=== PATIENT | male | born 1955 ===

== ENCOUNTER 2016-12-01 12:48 | Emergency (ER) | payer SELFPAY ==
[2016-12-01 12:48] VITALS: BMI 27.3
[2016-12-01 13:12] VITALS: BP 162/85; PULSE 75; RESP 16; TEMP 98.4; O2SAT 99
--- NOTE | 2016-12-01 14:12 | ED PDOC ---
HPI: Head Injury Time Seen by Provider: 12/01/16 13:34 Chief Complaint (Nursing): Headache Chief Complaint (Provider): Head Injury History Per: [employer] (Torie Wood [id number]) History/Exam Limitations: no limitations Onset/Duration Of Symptoms: Days (x5) Patient States: Fell Striking Head Severity: Mild Loss Of Consciousness: No Additional Complaint(s): Patient is a 61 year old male presenting to the ED complaining of head injury status post fall x5 days ago. [employer] Torie [id number] translated for the patient. Patient reports falling onto the back of his head and reports pain to that area. Patient reports discharge from his nose described as blood tinged mucous. Patient also complains of dizziness. Denies loss of consciousness. PMD: none Past Medical History Reviewed: Historical Data, Nursing Documentation, Vital Signs Vital Signs: Last Vital Signs Temp 98.4 F 12/01/16 13:07 Pulse 75 12/01/16 13:07 Resp 16 12/01/16 13:07 BP 162/85 H 12/01/16 13:07 Pulse Ox 99 12/01/16 13:07 - Medical History PMH: Deep Vein Thrombosis (2006), Malignancy (prostate CA), Pulmonary Embolism - Surgical History Surgical History: Appendectomy (1998) - Family History Family History: States: No Known Family Hx - Home Medications Home Medications: Ambulatory Orders Medication Instructions Recorded Lisinopril [Zestril] 2.5 mg PO DAILY 10/27/15 Pravastatin Sodium [Pravachol] 40 mg PO DAILY 10/27/15 Sildenafil [Revatio] 20 mg PO PRN PRN 10/27/15 Tamsulosin [Flomax] 0.4 mg PO DAILY 10/27/15 Warfarin [Coumadin] 7 mg PO HS 10/27/15 Azithromycin [Z-Stas] 250 mg PO DAILY #6 tab 10/05/16 Promethazine DM [Phenergan DM 10 ml PO Q8H PRN #120 ml 10/05/16 Syrup] Meclizine [Meclizine*] 25 mg PO Q6 PRN #30 tab 12/01/16 - Allergies Allergies/Adverse Reactions: Allergies Allergy/AdvReac Type Severity Reaction Status Date / Time No Known Allergies Allergy Verified 04/22/16 17:34 Review of Systems ROS Statement: Except As Marked, All Systems Reviewed And Found Negative Constitutional: Positive for: Other (pain to the back of head) ENT: Positive for: Other (blood tinged nose discharge) Gastrointestinal: Negative for: Nausea Neurological: Positive for: Dizziness Physical Exam - Reviewed Nursing Documentation Reviewed: Yes Vital Signs Reviewed: Yes - Physical Exam Appears: Positive for: Well, Non-toxic, No Acute Distress Head Exam: Positive for: ATRAUMATIC, NORMAL INSPECTION, NORMOCEPHALIC Skin: Positive for: Normal Color, Warm, DRY Eye Exam: Positive for: EOMI, Normal appearance, PERRL ENT: Positive for: Normal ENT Inspection Neck: Positive for: Normal, Painless ROM Cardiovascular/Chest: Positive for: Regular Rate, Rhythm. Negative for: Gallop , Murmur Respiratory: Positive for: Normal Breath Sounds. Negative for: Accessory Muscle Use, Rhonchi, Respiratory Distress Extremity: Positive for: Normal ROM Neurologic/Psych: Positive for: Alert, paradi tender II-XII (intact), Oriented. Negative for: Motor/Sensory Deficits - ECG O2 Sat by Pulse Oximetry: 99 Medical Decision Making Medical Decision Making: Time: 13:36 Impression: Head injury Plan: CT Head Antivert 25 mg PO Impression: No acute intracranial abnormality. Small left parietal scalp hematoma Mild chronic microangiopathic changes and mild age-related global parenchymal volume loss. Pt reports feeling much better after meclizine. Scribe Attestation: Documented by Brian Ball acting as a scribe for DAYNA Valentine. Provider Attestation: All medical record entries made by the Scribe were at my direction and personally dictated by me. I have reviewed the chart and agree that the record accurately reflects my personal performance of the history, physical exam, medical decision making, and the department course for this patient. I have also personally directed, reviewed, and agree with the discharge instructions and disposition. Disposition - Clinical Impression Clinical Impression: Concussion - Patient ED Disposition Is Patient to be Admitted: No Counseled Patient/Family Regarding: Diagnosis, Need For Followup, Rx Given - Disposition [facility]errals: [facility] [Outside[facility] Disposition: Routine/Home Disposition Time: 16:45 Condition: GOOD Prescriptions: Meclizine [Meclizine*] 25 mg PO Q6 PRN #30 tab PRN Reason: Dizziness Instructions: Concussion (ED) Print Language: BENINESE
--- NOTE | 2016-12-01 15:18 | CT ---
PROCEDURE: CT HEAD WITHOUT CONTRAST. HISTORY: Head injury, dizziness COMPARISON: None available. TECHNIQUE: Axial computed tomography images were obtained through the head/brain without intravenous contrast. Radiation dose: Total exam DLP = 887.19 MGy-cm. FINDINGS: HEMORRHAGE: No intracranial hemorrhage. BRAIN: Jim-white matter differentiation is preserved. There are mild chronic microangiopathic changes. There is no mass, mass effect or abnormal extra-axial fluid collection. There is normal density in the larger dural venous sinuses. VENTRICLES: There is mild age-related global parenchymal volume loss and proportionate enlargement of the ventricles and cortical sulci. CALVARIUM: There is no calvarial fracture. There is a small left parietal scalp hematoma. PARANASAL SINUSES: Predominantly clear. MASTOID AIR CELLS: Predominantly clear. OTHER FINDINGS: None. IMPRESSION: No acute intracranial abnormality. Small left parietal scalp hematoma. Mild chronic microangiopathic changes and mild age-related global parenchymal volume loss.
== END 2016-12-01 16:51 | disposition home or self-care (01) ==
LOC: H.ER 12:48
DX: R51 Headache (principal); R42 Dizziness and giddiness

== ENCOUNTER 2017-01-09 10:08 | Emergency (ER) | payer SELFPAY ==
[2017-01-09 10:09] VITALS: BMI 27.3
[2017-01-09 10:16] VITALS: BP 123/73; PULSE 77; RESP 19; TEMP 97.7; O2SAT 96
--- NOTE | 2017-01-09 11:11 | ED PDOC ---
HPI: General Adult Time Seen by Provider: 01/09/17 10:29 Chief Complaint (Nursing): Back Pain Chief Complaint (Provider): shoulder pain History Per: Patient History/Exam Limitations: no limitations Additional Complaint(s): 61yo male with left shoulder pain for 1 week. States it is worse with movement or when he takes deep breaths. Reports it is radiating down the entire left upper extremity. Denies palpitations or chest pain. Taking Tylenol without relief. States he fell 1 month ago but did not have any pain at onset. Past Medical History Reviewed: Historical Data, Nursing Documentation, Vital Signs Vital Signs: Last Vital Signs Temp 97.7 F 01/09/17 10:15 Pulse 77 01/09/17 10:15 Resp 19 01/09/17 10:15 BP 123/73 01/09/17 10:15 Pulse Ox 96 01/09/17 11:24 - Medical History PMH: Deep Vein Thrombosis (2006), Malignancy (prostate CA), Pulmonary Embolism - Surgical History Surgical History: Appendectomy (1998) - Family History Family History: States: Unknown Family Hx - Living Arrangements Living Arrangements: With Family - Social History Current smoker - smoking cessation education provided: No Alcohol: Social Drugs: Denies - Home Medications Home Medications: Ambulatory Orders Medication Instructions Recorded Lisinopril [Zestril] 2.5 mg PO DAILY 10/27/15 Pravastatin Sodium [Pravachol] 40 mg PO DAILY 10/27/15 Sildenafil [Revatio] 20 mg PO PRN PRN 10/27/15 Tamsulosin [Flomax] 0.4 mg PO DAILY 10/27/15 Warfarin [Coumadin] 7 mg PO HS 10/27/15 Azithromycin [Z-Stas] 250 mg PO DAILY #6 tab 10/05/16 Promethazine DM [Phenergan DM 10 ml PO Q8H PRN #120 ml 10/05/16 Syrup] Meclizine [Meclizine*] 25 mg PO Q6 PRN #30 tab 12/01/16 Cyclobenzaprine [Cyclobenzaprine 10 mg PO TID #20 tab 01/09/17 HCl] Ibuprofen [Motrin] 600 mg PO Q6 #20 tab 01/09/17 - Allergies Allergies/Adverse Reactions: Allergies Allergy/AdvReac Type Severity Reaction Status Date / Time No Known Allergies Allergy Verified 04/22/16 17:34 Review of Systems ROS Statement: Except As Marked, All Systems Reviewed And Found Negative Cardiovascular: Negative for: Chest Pain, Palpitations Musculoskeletal: Positive for: Shoulder Pain Physical Exam - Reviewed Nursing Documentation Reviewed: Yes Vital Signs Reviewed: Yes - Physical Exam Appears: Positive for: Well, Non-toxic, No Acute Distress Head Exam: Positive for: ATRAUMATIC, NORMAL INSPECTION, NORMOCEPHALIC Skin: Positive for: Warm, Dry Eye Exam: Positive for: EOMI, PERRL Cardiovascular/Chest: Positive for: Regular Rate, Rhythm Respiratory: Positive for: Normal Breath Sounds. Negative for: Rales, Rhonchi, Wheezing Extremity: Positive for: Tenderness (tender at left trap, posteriorly) - Laboratory Results Result Diagrams: 01/09/17 11:38 01/09/17 11:38 - ECG O2 Sat by Pulse Oximetry: 96 (RA) Pulse Ox Interpretation: Normal Medical Decision Making Medical Decision Makin XR Left shoulder to rule out fracture. Toradol given, as well as Flexeril. Cardiac workup initiated as well, including CXR, labs, EKG. All results discussed with Pt who demonstrated full understanding. Pt doing well on re-eval. Stable for discharge Disposition - Clinical Impression Clinical Impression: Shoulder pain - Patient ED Disposition Is Patient to be Admitted: No - Disposition Disposition: Routine/Home Disposition Time: 13:24 Condition: STABLE Prescriptions: Cyclobenzaprine [Cyclobenzaprine HCl] 10 mg PO TID #20 tab Ibuprofen [Motrin] 600 mg PO Q6 #20 tab Instructions: Shoulder Pain (ED) Forms: [facility] ED School/Work Excuse - POA Present On Arrival: None Additional Comments - Additional Comments Additional Comments: Scribe Attestation: Documented by Fredi Leblanc acting as a scribe for Lance Forde PA-C. Provider Scribe Attestation: All medical record entries made by the Scribe were at my direction and personally dictated by me. I have reviewed the chart and agree that the record accurately reflects my personal performance of the history, physical exam, medical decision making, and the department course for this patient. I have also personally directed, reviewed, and agree with the discharge instructions and disposition.
[2017-01-09 11:42] LABS: BASO % 0.7 % (0.0-2.0); EOS # 0.1 K/uL (0.0-0.7); EOS % 2.8 % (0.0-4.0); HEMATOCRIT 43.5 % (35.0-51.0); LYMPH # 1.1 K/uL (1.0-4.3); LYMPH % 26.6 % (20.0-40.0); MEAN CORPUSCULAR HEMOGLOBIN 29.2 pg (27.0-31.0); MEAN PLATELET VOLUME 7.5 fl (7.2-11.7); MONO # 0.5 K/uL (0.0-0.8); MONO % 10.8 % (0.0-10.0); NEUT # 2.5 K/uL (1.8-7.0); NEUT % 59.1 % (50.0-75.0); NRBC % 0.1 % (0.0-0.0); RED CELL DISTRIBUTION WIDTH 14.6 % (11.5-14.5); WHITE BLOOD COUNT 4.2 K/uL (4.8-10.8)
--- NOTE | 2017-01-09 11:47 | RAD ---
PROCEDURE: Radiographs of the Left Shoulder HISTORY: pain COMPARISON: Correlation made with prior chest radiograph 10/05 which partially image the left shoulder FINDINGS: BONES: No acute displaced fracture nor dislocation. JOINTS: Mild degenerative osteoarthritis left acromioclavicular and to a lesser degree glenohumeral joints SOFT TISSUES: Normal. OTHER FINDINGS: None. IMPRESSION: No evidence of acute displaced fracture nor dislocation. Mild DJD as described above.
--- NOTE | 2017-01-09 11:47 | RAD ---
HISTORY: pain to upper shoulder COMPARISON: Made with chest radiograph dated 10/05/2016. TECHNIQUE: Chest PA and lateral FINDINGS: LUNGS: No active pulmonary disease. PLEURA: No significant pleural effusion identified. No pneumothorax apparent. CARDIOVASCULAR: Normal. OSSEOUS STRUCTURES: Mild diffuse demineralization. VISUALIZED UPPER ABDOMEN: Normal. OTHER FINDINGS: None. IMPRESSION: No acute infiltrates or effusions
[2017-01-09 11:52] LABS: ALB/GLOB RATIO 1.4 (1.0-2.1); ALKALINE PHOSPHATASE 76 U/L (38-126); ALT/SGPT 43 U/L (21-72); AST/SGOT 37 U/L (17-59); BILIRUBIN,TOTAL 0.5 mg/dl (0.2-1.3); BLOOD UREA NITROGEN 13 mg/dl (9-20); CALCIUM 10.2 mg/dL (8.4-10.2); CARBON DIOXIDE 25 mmol/L (22-30); CHLORIDE 101 mmol/L (98-107); GFR AFRICAN-AMERICAN > 60; GLUCOSE,RANDOM 100 mg/dL (75-110); POTASSIUM 4.6 MMOL/L (3.6-5.0); SODIUM 137 mmol/l (132-148); TOTAL PROTEIN 7.8 G/DL (6.3-8.2)
[2017-01-09 12:00] LABS: PARTIAL THROMBOPLASTIN TIME 25.6 SECONDS (23.3-32.5)
== END 2017-01-09 13:48 | disposition home or self-care (01) ==
LOC: H.ER 10:08
DX: M19.012 Primary osteoarthritis, left shoulder (principal); Z79.01 Long term (current) use of anticoagulants; Z85.46 Personal history of malignant neoplasm of prostate; Z86.711 Personal history of pulmonary embolism; Z86.718 Personal history of other venous thrombosis and embolism

== ENCOUNTER 2017-03-24 12:25 | Emergency (ER) | payer SELFPAY ==
[2017-03-24 12:25] VITALS: BMI 27.3
[2017-03-24] MEDS ORDERED: Sodium Chloride 0.9% 1,000 ML IV STA (12:53)
[2017-03-24] MEDS ORDERED: Morphine 4 MG/ML VIAL IV ONE (12:53)
--- NOTE | 2017-03-24 12:55 | ED PDOC ---
HPI: SOB/CHF/COPD Time Seen by Provider: 03/24/17 12:37 Chief Complaint (Nursing): Shortness Of Breath History Per: Patient History/Exam Limitations: no limitations Onset/Duration Of Symptoms: Other (x 3 months) Additional Complaint(s): Josr Nagel is a 62 year old male, with a previous medical history of DVT, who presents to the ED for the evaluation of left rib pain radiating to his left arm associated with shortness of breath ongoing for 3 months after sustaining a fall. Patient reports pain is worse with deep inhalation. He denies any chest pain, nausea, vomiting, diarrhea, abdominal pain, dizziness, headache, leg pain , visual changes, numbness, tingling or recent travel. Patient reports being seen in the ED for symptoms in the past with a full negative workup. He was then discharged with flexeril which he states provides no relief. PMD: [facility] Past Medical History Reviewed: Historical Data, Nursing Documentation, Vital Signs Vital Signs: Last Vital Signs Temp 98 F 03/24/17 12:29 Pulse 84 03/24/17 12:29 Resp 16 03/24/17 13:00 BP 145/65 03/24/17 12:29 Pulse Ox 98 03/24/17 13:36 - Medical History PMH: Deep Vein Thrombosis (2006), Malignancy (prostate CA), Pulmonary Embolism - Surgical History Surgical History: Appendectomy (1998) - Family History Family History: States: Unknown Family Hx - Social History Alcohol: None Drugs: Denies - Home Medications Home Medications: Ambulatory Orders Medication Instructions Recorded Lisinopril [Zestril] 2.5 mg PO DAILY 10/27/15 Pravastatin Sodium [Pravachol] 40 mg PO DAILY 10/27/15 Sildenafil [Revatio] 20 mg PO PRN PRN 10/27/15 Tamsulosin [Flomax] 0.4 mg PO DAILY 10/27/15 Warfarin [Coumadin] 7 mg PO HS 10/27/15 Azithromycin [Z-Stas] 250 mg PO DAILY #6 tab 10/05/16 Promethazine DM [Phenergan DM 10 ml PO Q8H PRN #120 ml 10/05/16 Syrup] Meclizine [Meclizine*] 25 mg PO Q6 PRN #30 tab 12/01/16 Cyclobenzaprine [Cyclobenzaprine 10 mg PO TID #20 tab 05/08/17 HCl] Ibuprofen [Motrin] 600 mg PO Q6 #20 tab 01/09/17 Ibuprofen [Motrin] 600 mg PO TID 7 Days 03/24/17 - Allergies Allergies/Adverse Reactions: Allergies Allergy/AdvReac Type Severity Reaction Status Date / Time No Known Allergies Allergy Verified 04/22/16 17:34 Review of Systems ROS Statement: Except As Marked, All Systems Reviewed And Found Negative Eyes: Negative for: Vision Change Cardiovascular: Negative for: Chest Pain, Palpitations Respiratory: Positive for: Shortness of Breath Gastrointestinal: Negative for: Nausea, Vomiting, Abdominal Pain, Diarrhea Musculoskeletal: Positive for: Arm Pain (left), Other (left rib pain ) Neurological: Negative for: Numbness, Dizziness, Other (tingling) Physical Exam - Reviewed Nursing Documentation Reviewed: Yes Vital Signs Reviewed: Yes - Physical Exam Appears: Positive for: Non-toxic, No Acute Distress Head Exam: Positive for: ATRAUMATIC, NORMAL INSPECTION, NORMOCEPHALIC Skin: Positive for: Normal Color, Warm, Dry Eye Exam: Positive for: EOMI, Normal appearance, PERRL ENT: Positive for: Normal ENT Inspection Neck: Positive for: Normal, Painless ROM Cardiovascular/Chest: Positive for: Regular Rate, Rhythm Respiratory: Positive for: Normal Breath Sounds. Negative for: Decreased Breath Sounds, Accessory Muscle Use, Wheezing, Plerual Rub Pulses-Dorsalis Pedis (L): 2+ Pulses-Dorsalis Pedis (R): 2+ Pulses-Radial (L): 2+ Pulses-Radial (R): 2+ Gastrointestinal/Abdominal: Positive for: Normal Exam, Bowel Sounds, Soft. Negative for: Tenderness Back: Positive for: Normal Inspection. Negative for: L CVA Tenderness, R CVA Tenderness Extremity: Positive for: Normal ROM, Tenderness (left upper chest at the trapezius area with movement of the left arm and palpation), Capillary Refill ( < 2 seconds), Other (5/5 rock splitter). Negative for: Pedal Edema, Calf Tenderness, Deformity, Swelling Neurologic/Psych: Positive for: Alert, Oriented - Laboratory Results Result Diagrams: 03/24/17 13:10 03/24/17 13:10 Interpretation Of Abn Labs: 1.4 inr - ECG ECG: Positive for: Interpreted By Me, Viewed By Me ECG Rhythm: Positive for: Normal QRS, Normal ST Segment, Sinus Rhythm O2 Sat by Pulse Oximetry: 98 (RA) Pulse Ox Interpretation: Normal - CT Scan/US ct Other Rad Studies (CT/US): Read By Radiologist Other Rad Interpretation: no acute - Progress ED Course And Treament: 1708: Stable. AAOx3. Pain free. Tolerated PO. Fu with pcp. Chronic pain. Medical Decision Making Medical Decision Making: Initial Plan: * CT angio chest * EKG * Troponin I * labs * PTT * PT * Morphine 4 mg IV * IV NS 1,000 ml at 1,000 ml/hr * reevaluation Scribe Attestation: Documented by Adamaris Solitario, acting as a scribe for Ramses Leyva MD. Provider Scribe Attestation: All medical record entries made by the Scribe were at my direction and personally dictated by me. I have reviewed the chart and agree that the record accurately reflects my personal performance of the history, physical exam, medical decision making, and the department course for this patient. I have also personally directed, reviewed, and agree with the discharge instructions and disposition. Disposition - Clinical Impression Clinical Impression: Rib pain, Arm pain - Patient ED Disposition Is Patient to be Admitted: No Counseled Patient/Family Regarding: Studies Performed, Diagnosis, Need For Followup, Rx Given - Disposition Referrals: [facility] [Outside] - 03/27/17 Disposition: Routine/Home Disposition Time: 17:09 Condition: STABLE Additional Instructions: Return if not better in 3 days. Prescriptions: Ibuprofen [Motrin] 600 mg PO TID 7 Days Instructions: Chest Wall Pain (ED), Arm Pain (ED) Print Language: NIGERIEN
[2017-03-24 13:20] LABS: BASO % 0.8 % (0.0-2.0); EOS # 0.1 K/uL (0.0-0.7); EOS % 1.1 % (0.0-4.0); LYMPH # 1.4 K/uL (1.0-4.3); LYMPH % 27.3 % (20.0-40.0); MEAN CELL VOLUME 88.5 fl (80.0-94.0); MEAN CORPUSCULAR HEMOGLOBIN 29.1 pg (27.0-31.0); MEAN CORPUSCULAR HGB CONC 32.8 g/dL (33.0-37.0); MONO # 0.6 K/uL (0.0-0.8); NEUT # 3.1 K/uL (1.8-7.0); NEUT % 59.8 % (50.0-75.0); NRBC % 0.1 % (0.0-0.0); RBC 4.48 Mil/uL (4.40-5.90); RED CELL DISTRIBUTION WIDTH 14.3 % (11.5-14.5); WHITE BLOOD COUNT 5.2 K/uL (4.8-10.8)
[2017-03-24 13:29] LABS: ALB/GLOB RATIO 1.2 (1.0-2.1); ALBUMIN 3.7 g/dL (3.5-5.0); ALT/SGPT 56 U/L (21-72); AST/SGOT 47 U/L (17-59); BLOOD UREA NITROGEN 15 mg/dl (9-20); CALCIUM 8.5 mg/dL (8.4-10.2); GFR AFRICAN-AMERICAN > 60; GFR NON-AFRICAN AMERICAN > 60
[2017-03-24 13:45] LABS: INR 1.4 (0.9-1.2); PARTIAL THROMBOPLASTIN TIME 29.3 Seconds (25.6-37.1); PROTHROMBIN TIME 15.5 Seconds (9.8-13.1)
[2017-03-24] MEDS ORDERED: Sodium Chloride 0.9% 50 ML IV ONE (14:46)
[2017-03-24] MEDS ORDERED: Iodixanol 320 MG/ML 100 ML BOTTLE IV ONE (14:46)
[2017-03-24 16:30] VITALS: RESP 16
--- NOTE | 2017-03-24 16:31 | CT ---
CTA chest PE protocol Indication: Chest pain Technique: Contiguous axial images were obtained through the chest with intravenous contrast enhancement. Sagittal and coronal reconstructions were generated and reviewed. This CT exam was performed using 1 or more of the falling dose reduction techniques: Automated exposure control, adjustment of the MAA and/or kV according to patient size, and/or use of iterative reconstruction technique. IV Contrast: 99 mL Visipaque 320 Radiation dose (DLP): 480.73 MGy-cm. Comparison: Chest x-ray performed 01/09/17 Findings: Visualized portions of the inferior thyroid gland appear unremarkable. The mediastinal and hilar vascular structures appear within normal limits. The heart appears within normal limits of size. No large central or segmental pulmonary embolus evident. No focal consolidation. No pleural effusion. No pneumothorax. No suspicious pulmonary nodules measuring greater than 5 mm. Small hiatal hernia. Limited visualized portions of the upper abdomen appears grossly unremarkable. No acute osseous abnormality is detected. Impression: No large central or segmental pulmonary embolus identified.
[2017-03-24 17:40] VITALS: BP 140/71; PULSE 80; TEMP 98; O2SAT 99
--- NOTE | 2017-03-25 20:54 | CARD ---
APPROVED REPORT EKG Measurement Heart [id number] <Conclusion> Normal sinus rhythm Normal ECG
== END 2017-03-24 17:40 | disposition home or self-care (01) ==
LOC: H.ER 12:25
DX: R07.82 Intercostal pain (principal); M79.602 Pain in left arm; Z79.01 Long term (current) use of anticoagulants; Z85.46 Personal history of malignant neoplasm of prostate; Z86.711 Personal history of pulmonary embolism; Z86.718 Personal history of other venous thrombosis and embolism

== ENCOUNTER 2018-07-03 13:30 | Emergency (ER) | payer SELFPAY ==
[2018-07-03 13:31] VITALS: BMI 27.3
[2018-07-03 13:52] VITALS: RESP 18; TEMP 98.9
--- NOTE | 2018-07-03 14:34 | ED PDOC ---
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 He reports he took naproxen at home yesterday but did not take any medications today. Patient denies any prior shoulder injury or surgery. He does do heaving lifting and overhead activities at work, which worsen his symptoms. Pain radiates to his neck when it is severe. Patient is right hand dominant. Otherwise: (-) trauma/falls (-) numbness, (-) paresthesias (-) other injury (-) chest pain (-) SOB (-) headache (-) dizziness (-) N/V. PMD: [facility] Past Medical History Reviewed: Historical Data, Nursing Documentation, Vital Signs Vital Signs: Last Vital Signs Temp 98.9 F 07/03/18 13:51 Pulse 84 07/03/18 13:51 Resp 18 07/03/18 13:51 BP 127/70 07/03/18 13:51 Pulse Ox 98 07/03/18 13:51 - Medical History PMH: Deep Vein Thrombosis (2006 - patient on Warfarin), Malignancy (prostate CA), Pulmonary Embolism - Surgical History Surgical History: Appendectomy (1998) Other surgeries: hemorrhoidectomy - Family History Family History: States: Unknown Family Hx - Social History Current smoker - smoking cessation education provided: No - Home Medications Home Medications: Ambulatory Orders Medication Instructions Recorded Pravastatin Sodium [Pravachol] 40 mg PO DAILY 10/27/15 RX: Lisinopril [Zestril] 2.5 mg PO DAILY 10/27/15 RX: Sildenafil [Revatio] 20 mg PO PRN PRN 10/27/15 RX: Warfarin [Coumadin] 7 mg PO HS 10/27/15 Tamsulosin [Flomax] 0.4 mg PO DAILY 10/27/15 Azithromycin [Z-Stas] 250 mg PO DAILY #6 tab 10/05/16 RX: Promethazine DM [Phenergan DM 10 ml PO Q8H PRN #120 ml 10/05/16 Syrup] RX: Meclizine [Meclizine*] 25 mg PO Q6 PRN #30 tab 12/01/16 Cyclobenzaprine [Cyclobenzaprine 10 mg PO TID #20 tab 01/09/17 HCl] Ibuprofen [Motrin] 600 mg PO Q6 #20 tab 01/09/17 Acetaminophen [Acetaminophen 8 650 mg PO Q8 PRN #21 tablet.er 07/03/18 Hour] Methocarbamol [Robaxin-750] 750 mg PO TID PRN #12 tab 07/03/18 RX: traMADol [Ultram] 50 mg PO Q6 PRN #12 tab 07/03/18 - Allergies Allergies/Adverse Reactions: Allergies Allergy/AdvReac Type Severity Reaction Status Date / Time No Known Allergies Allergy Verified 07/03/18 13:50 Review of Systems ROS Statement: Except As Marked, All Systems Reviewed And Found Negative Musculoskeletal: Positive for: Neck Pain, Other (right shoulder pain) Physical Exam - Reviewed Nursing Documentation Reviewed: Yes Vital Signs Reviewed: Yes - Physical Exam Comments: GENERAL APPEARANCE: Patient is awake, alert, oriented x 3, in no acute distress; resting comfortably. SKIN: Warm, dry; (-) cyanosis. NECK: Supple, FROM (+) right paracervical tenderness ENT: Mucus membranes moist. Airway patent, (-) stridor. CHEST AND RESPIRATORY: (-) rales, (-) rhonchi, (-) wheezes; breath sounds equal bilaterally. Respirations even and nonlabored. HEART AND CARDIOVASCULAR: (-) irregularity EXTREMITY: (+) diffuse right shoulder tenderness most notable to trapezius and AC joint, (+) Decreased ROM secondary to pain, (-) effusion, (-) deformity, (-) erythema. Poultry Inspector strength equal. Remainder of upper extremity nontender with FROM. Sensation intact throughout. Cap refill < 2 seconds. NEURO AND PSYCH: Mental status as above. Gait: steady. Speech: clear. (-) facial asymmetry (-) aphasia. - ECG O2 Sat by Pulse Oximetry: 98 (RA) Pulse Ox Interpretation: Normal Medical Decision Making Medical Decision Making: Initial Time: 14:10 Initial impression: Acute shoulder pain, muscle spasm of shoulder; probable tendonitis Initial Plan: --Tylenol 650 mg PO --Valium 5 mg PO (not driving home) --Right shoulder x-ray 14:30 Shoulder X-Ray FINDINGS: BONES: No acute fracture. JOINTS: Unremarkable. SOFT TISSUES: Calcific tendinitis of the supraspinatus tendon. OTHER FINDINGS: None. IMPRESSION: No demonstrated fracture or dislocation. Supraspinatus calcific tendonitis. 1455 On re-evaluation, patient reports improvement of symptoms. On exam, patient remains AAOx3, in no acute distress. Lungs clear to auscultation, cardiac RRR, repeat neuro exam shows no focal findings. Vitals stable. Lab/Diagnostic results d/w the patient in great detail. Diagnosis of acute shoulder pain, calcific tendonitis d/w the patient. Based on history, exam and diagnostic results, plan will be for outpatient follow up with clinic/ortho. Patient instructed to follow-up with pmd / referral provided / the clinic in 1- 2 days without fail. Advised to take medication as prescribed. Return to the emergency room at any time for any new or worsening symptoms. Patient states he fully agrees with and understands discharge instructions. States that he agrees with the plan and disposition. Verbalized and repeated discharge instructions and plan. I have given the patient opportunity to ask any additional questions. Scribe Attestation: Documented by Eagle Mi, acting as a scribe for Selena Kwok Provider Scribe Attestation: All medical record entries made by the Scribe were at my direction and persona renéy dictated by me. I have reviewed the chart and agree that the record accurately reflects my personal performance of the history, physical exam, medical decision making, and the department course for this patient. I have also personally directed, reviewed, and agree with the discharge instructions and disposition. Disposition - Clinical Impression Clinical Impression: Acute shoulder pain, Calcific tendonitis of right shoulder - Patient ED Disposition Is Patient to be Admitted: No Counseled Patient/Family Regarding: Studies Performed, Diagnosis, Need For Followup, Rx Given - Disposition Referrals: [facility] [Outside] Dandy Mota III, MD [Staff Provider] - Disposition: Routine/Home Disposition Time: 14:55 Condition: STABLE Additional Instructions: La atencin mdica de emergencia que recibi hoy se dirigi a abilio sntomas agudos. Si le recetaron algn medicamento, llnelo y tmelo segn las indicaciones. Los sntomas pueden tardar varios haq en resolverse. Regrese al Departamento de Emergencias si abilio sntomas empeoran, no mejoran o si tiene otros problemas. Comunquese con blackburn mdico dentro de 2 haq para bre nueva evaluacin y mansi un seguimiento o llame a brittanie de los mdicos / clnicas a los que javier sido referido y que figuran en el formulario de Informacin de visita al paciente que se incluye en blackburn paquete de neel. Lleve con usted a blackburn consulta de seguimiento toda la documentacin que recibi del neel junto con los medicamentos que est tomando. Nuestro tratamiento no puede reemplazar la atencin mdica continua por parte de un proveedor de atencin primaria (PCP) fuera del departamento de emergencias. Prescriptions: Acetaminophen [Acetaminophen 8 Hour] 650 mg PO Q8 PRN #21 tablet.er PRN Reason: Pain, Moderate (4-7) Methocarbamol [Robaxin-750] 750 mg PO TID PRN #12 tab PRN Reason: Muscle Spasm RX: traMADol [Ultram] 50 mg PO Q6 PRN #12 tab PRN Reason: Pain, Severe (8-10) Instructions: Calcific Tendonitis of the Shoulder (DC), Tendonitis (DC), Rotator Cuff Tendinitis Stretching Exercises, Shoulder Pain (DC) Forms: [employer] (Bahraini) Print Language: HEBREW - POAlex Present On Arrival: None
--- NOTE | 2018-07-03 14:38 | RAD ---
Date of service: 07/03/2018 PROCEDURE: Radiographs of the Right Shoulder HISTORY: joint pain COMPARISON: No prior. FINDINGS: BONES: No acute fracture. JOINTS: Unremarkable. SOFT TISSUES: Calcific tendinitis of the supraspinatus tendon. OTHER FINDINGS: None. IMPRESSION: No demonstrated fracture or dislocation. Supraspinatus calcific tendonitis.
[2018-07-03 15:27] VITALS: BP 126/76; PULSE 70
[2018-07-04 22:13] VITALS: O2SAT 98
== END 2018-07-03 15:26 | disposition home or self-care (01) ==
LOC: H.ER 13:30
DX: M75.31 Calcific tendinitis of right shoulder (principal); Z79.01 Long term (current) use of anticoagulants; Z85.46 Personal history of malignant neoplasm of prostate; Z86.711 Personal history of pulmonary embolism; Z86.718 Personal history of other venous thrombosis and embolism

== ENCOUNTER 2018-10-16 10:14 | Emergency (ER) | payer SELFPAY ==
[2018-10-16 10:14] VITALS: BMI 27.3
[2018-10-16] MEDS ORDERED: Sodium Chloride 0.9% 1,000 ML IV ONE (11:18)
--- NOTE | 2018-10-16 11:26 | ED PDOC ---
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 Pt indicates the fall was mechanical in nature) Past Medical History Reviewed: Historical Data Vital Signs: Last Vital Signs Temp 98.4 F 10/16/18 10:25 Pulse 84 10/16/18 10:25 Resp 15 10/16/18 10:25 BP Pulse Ox 97 10/16/18 10:25 - Medical History PMH: Deep Vein Thrombosis (2006 - patient on Warfarin), Malignancy (prostate CA), Pulmonary Embolism - Surgical History Surgical History: Appendectomy (1998) - Family History Family History: States: Unknown Family Hx - Home Medications Home Medications: Ambulatory Orders Medication Instructions Recorded Pravastatin Sodium [Pravachol] 40 mg PO DAILY 10/27/15 RX: Lisinopril [Zestril] 2.5 mg PO DAILY 10/27/15 RX: Sildenafil [Revatio] 20 mg PO PRN PRN 10/27/15 RX: Warfarin [Coumadin] 7 mg PO HS 10/27/15 Tamsulosin [Flomax] 0.4 mg PO DAILY 10/27/15 Azithromycin [Z-Stas] 250 mg PO DAILY #6 tab 10/05/16 RX: Promethazine DM [Phenergan DM 10 ml PO Q8H PRN #120 ml 10/05/16 Syrup] RX: Meclizine [Meclizine*] 25 mg PO Q6 PRN #30 tab 12/01/16 Cyclobenzaprine [Cyclobenzaprine 10 mg PO TID #20 tab 01/09/17 HCl] Ibuprofen [Motrin] 600 mg PO Q6 #20 tab 01/09/17 Acetaminophen [Acetaminophen 8 650 mg PO Q8 PRN #21 tablet.er 07/03/18 Hour] Methocarbamol [Robaxin-750] 750 mg PO TID PRN #12 tab 07/03/18 RX: traMADol [Ultram] 50 mg PO Q6 PRN #12 tab 07/03/18 RX: Cyclobenzaprine [Flexeril] 10 mg PO TID #27 tab 10/16/18 - Allergies Allergies/Adverse Reactions: Allergies Allergy/AdvReac Type Severity Reaction Status Date / Time No Known Allergies Allergy Verified 07/03/18 13:50 Review of Systems ROS Statement: Except As Marked, All Systems Reviewed And Found Negative Musculoskeletal: Positive for: Neck Pain, Back Pain Physical Exam - Reviewed Nursing Documentation Reviewed: Yes Vital Signs Reviewed: Yes - Physical Exam Appears: Positive for: Well, Non-toxic Head Exam: Positive for: ATRAUMATIC, NORMAL INSPECTION Skin: Positive for: Normal Color, Warm, Dry. Negative for: Diaphoresis, Pallor, Rash Eye Exam: Positive for: Normal appearance, EOMI, PERRL. Negative for: Nystagmus, Periorbital swelling, Periorbital tenderness ENT: Positive for: Normal ENT Inspection Neck: Positive for: Supple, Limited ROM. Negative for: Painless ROM, Decreased ROM Cardiovascular/Chest: Positive for: Regular Rate, Rhythm Respiratory: Positive for: Normal Breath Sounds Pulses-Carotid (L): 2+ Pulses-Carotid (R): 2+ Pulses-Radial (L): 2+ Pulses-Radial (R): 2+ Gastrointestinal/Abdominal: Positive for: Normal Exam Back: Positive for: Normal Inspection, Vertebral Tenderness Extremity: Positive for: Normal ROM. Negative for: Tenderness, Pedal Edema, Calf Tenderness, Deformity - ECG O2 Sat by Pulse Oximetry: 97 Medical Decision Making Medical Decision Making: R/O acute cervical or lumbar injury R/O head injury P: CT CT Lumbar Spine FINDINGS: VERTEBRAE: Limited multilevel spondylosis diffusely evident sparing only L1-2 disc interspace level. No fracture. Normal alignment. DISCS/SPINAL CANAL/NEURAL FORAMINA: No bony central canal or neural foraminal stenosis identified at L T12-L1 or L1- 2. At L2-3, a circumferential disc bulge is appreciated combined with facet joint degenerative arthropathy resulting in mild central canal stenosis concentrated at the lateral recesses symmetrically. Mild degenerative bilateral neural foraminal stenoses identified symmetrically. At L3-4, mild to moderate central stenosis results from circumferential disc bulging combining with facet joint degenerative arthropathy with gwbn-jm-poybeupy degenerative bilateral neural foraminal stenoses identified on a degenerative basis. At L4-5, a circumferential disc bulge is appreciated causing mild central stenosis a mild degenerative bilateral neural foraminal stenosis. At L5-S1, a circumferential disc bulge inverting the ventral thecal sac and encroaches the bilateral lateral recesses with facet joint degenerative change. Borderline degenerative neural foraminal stenoses are identified bilaterally. No gross disc herniation appreciated throughout the lumbar spine. MRI is more sensitive in evaluation of intervertebral discs. PARASPINAL SOFT TISSUES: Unremarkable. OTHER FINDINGS: Unremarkable. IMPRESSION: 1. Multilevel degenerative disc disease and facet joint arthropathy resulting in multilevel degenerative spinal stenosis and neural foraminal stenoses seen worst at L3-4 where a rgdq-md-soddnbuu central canal stenosis occurs with degenerative neural foraminal stenoses. 2. No severe stenosis throughout the lumbar spine. No gross disc herniation however MRI is more sensitive in evaluation of intervertebral discs. 3. No fracture or spondylolisthesis identified. CT Thoracic Spine FINDINGS: VERTEBRAE: Kmsc-ow-opanbygv multilevel spondylosis appreciated diffusely predominantly at the anterolateral right side of the thoracic spine. No fracture. Normal al ignment. 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 DISCS/SPINAL CANAL/NEURAL FORAMINA: Within the limits of the CT technique, no gross disc herniation seen. MRI is more sensitive in evaluation of intervertebral discs. No bony central canal or neural foraminal stenosis.. PARASPINAL SOFT TISSUES: Unremarkable. OTHER FINDINGS: Calcific atherosclerotic changes are seen related to the thoracic aorta. IMPRESSION: No acute fracture or spondylolisthesis identified. Xxnw-iw-lvvgmjgz degenerative disease which is predominantly antro lateral to the right and does not affect the central canal. No gross disc herniation. No bony central canal or neural foraminal stenosis identified. 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 CT Head FINDINGS: HEMORRHAGE: No intracranial hemorrhage. BRAIN: No mass effect or edema. No atrophy or chronic microvascular ischemic changes. VENTRICLES: Unremarkable. No hydrocephalus. CALVARIUM: Unremarkable. PARANASAL SINUSES: Unremarkable as visualized. No significant inflammatory changes. MASTOID AIR CELLS: Unremarkable as visualized. No inflammatory changes. OTHER FINDINGS: None. IMPRESSION: No acute intracranial abnormalities. No significant findings to account for the clinical presentation. No significant interval change compared to the prior examination(s). CT C-Spine FINDINGS: VERTEBRAE: No fracture. Normal alignment. No destructive bony lesion DISCS/SPINAL CANAL/NEURAL FORAMINA: Multilevel cervical spondylosis. Findings extend from C3-4 to C7-T1. Discs heights are narrowed at these levels. Small non marginal osteophytes identified.. PARASPINAL SOFT TISSUES: Unremarkable. OTHER FINDINGS: None. IMPRESSION: Multilevel degenerative change. No acute findings. Disposition - Clinical Impression Clinical Impression: Back pain, Mid back pain, Acute back pain - Patient ED Disposition Is Patient to be Admitted: No Doctor Will See Patient In The: Office Counseled Patient/Family Regarding: Diagnosis, Need For Followup, Rx Given - Disposition Referrals: [facility] [place] [Outside] [facility] [place] [Outside] Disposition: Routine/Home Disposition Time: 14:05 Condition: STABLE Prescriptions: RX: Cyclobenzaprine [Flexeril] 10 mg PO TID #27 tab Instructions: Upper Back Pain, Upper Back Pain (DC) Forms: [employer] (Portuguese), [employer] (Bulgarian) Print Language: NIGERIEN Wells Criteria for PE - Wells Criteria for Pulmonary Embolism Clinical Signs and Symptoms of DVT: No P.E is #1 Diagnosis, or Equally Likely: No Heart Rate >100: No Immobilization at least 3 days;Surgery previous 4 weeks: No Previous, objectively diagnosed PE or DVT: Yes Hemoptysis: No Malignancy w/treatment within 6 months, or palliative: Yes Total Score: 2.5
--- NOTE | 2018-10-16 12:20 | CT ---
Date of service: 10/16/2018 PROCEDURE: CT HEAD WITHOUT CONTRAST. HISTORY: Posttraumatic back pain. COMPARISON: 12/01/2016. TECHNIQUE: Axial computed tomography images were obtained through the head/brain without intravenous contrast. Supplemental Coronal and Sagittal projections created and reviewed. Radiation dose: Total exam DLP = 864.50 mGy-cm. This CT exam was performed using one or more of the following dose reduction techniques: Automated exposure control, adjustment of the mA and/or kV according to patient size, and/or use of iterative reconstruction technique. FINDINGS: HEMORRHAGE: No intracranial hemorrhage. BRAIN: No mass effect or edema. No atrophy or chronic microvascular ischemic changes. VENTRICLES: Unremarkable. No hydrocephalus. CALVARIUM: Unremarkable. PARANASAL SINUSES: Unremarkable as visualized. No significant inflammatory changes. MASTOID AIR CELLS: Unremarkable as visualized. No inflammatory changes. OTHER FINDINGS: None. IMPRESSION: No acute intracranial abnormalities. No significant findings to account for the clinical presentation. No significant interval change compared to the prior examination(s).
--- NOTE | 2018-10-16 12:41 | CT ---
Date of service: 10/16/2018 PROCEDURE: CT Cervical Spine without contrast HISTORY: s/p fall COMPARISON: None available. TECHNIQUE: Axial computed tomography images were obtained of the cervical spine without the use of intravenous contrast. Coronal and sagittal reformatted images were created and reviewed. Radiation dose: Total exam DLP = 307.25 mGy-cm. This CT exam was performed using one or more of the following dose reduction techniques: Automated exposure control, adjustment of the mA and/or kV according to patient size, and/or use of iterative reconstruction technique. FINDINGS: VERTEBRAE: No fracture. Normal alignment. No destructive bony lesion. DISCS/SPINAL CANAL/NEURAL FORAMINA: Multilevel cervical spondylosis. Findings extend from C3-4 to C7-T1. Discs heights are narrowed at these levels. Small non marginal osteophytes identified.. PARASPINAL SOFT TISSUES: Unremarkable. OTHER FINDINGS: None. IMPRESSION: Multilevel degenerative change. No acute findings.
--- NOTE | 2018-10-16 13:12 | CT ---
Date of service: 10/16/2018 PROCEDURE: CT Lumbar Spine without contrast HISTORY: s/p fall COMPARISON: None available. TECHNIQUE: Axial computed tomography images were obtained of the lumbar spine without intravenous contrast. Coronal and sagittal reformatted images were created and reviewed. Radiation dose: Total exam DLP = 407.72 mGy-cm. This CT exam was performed using one or more of the following dose reduction techniques: Automated exposure control, adjustment of the mA and/or kV according to patient size, and/or use of iterative reconstruction technique. FINDINGS: VERTEBRAE: Limited multilevel spondylosis diffusely evident sparing only L1-2 disc interspace level. No fracture. Normal alignment. DISCS/SPINAL CANAL/NEURAL FORAMINA: No bony central canal or neural foraminal stenosis identified at L T12-L1 or L1-2. At L2-3, a circumferential disc bulge is appreciated combined with facet joint degenerative arthropathy resulting in mild central canal stenosis concentrated at the lateral recesses symmetrically. Mild degenerative bilateral neural foraminal stenoses identified symmetrically. At L3-4, mild to moderate central stenosis results from circumferential disc bulging combining with facet joint degenerative arthropathy with vztv-qs-affwidez degenerative bilateral neural foraminal stenoses identified on a degenerative basis. At L4-5, a circumferential disc bulge is appreciated causing mild central stenosis a mild degenerative bilateral neural foraminal stenosis. At L5-S1, a circumferential disc bulge inverting the ventral thecal sac and encroaches the bilateral lateral recesses with facet joint degenerative change. Borderline degenerative neural foraminal stenoses are identified bilaterally. No gross disc herniation appreciated throughout the lumbar spine. MRI is more sensitive in evaluation of intervertebral discs. PARASPINAL SOFT TISSUES: Unremarkable. OTHER FINDINGS: Unremarkable. IMPRESSION: 1. Multilevel degenerative disc disease and facet joint arthropathy resulting in multilevel degenerative spinal stenosis and neural foraminal stenoses seen worst at L3-4 where a lpad-ya-rawudqcw central canal stenosis occurs with degenerative neural foraminal stenoses. 2. No severe stenosis throughout the lumbar spine. No gross disc herniation however MRI is more sensitive in evaluation of intervertebral discs. 3. No fracture or spondylolisthesis identified.
--- NOTE | 2018-10-16 13:19 | CT ---
Date of service: 2018-10-16 12:03:38 PROCEDURE: CT Thoracic Spine without contrast HISTORY: s/p fall COMPARISON: None available. TECHNIQUE: Axial computed tomography images were obtained of the thoracic spine without intravenous contrast. Coronal and sagittal reformatted images were created and reviewed. Radiation dose: Total exam DLP = 519.6 mGy-cm. This CT exam was performed using one or more of the following dose reduction techniques: Automated exposure control, adjustment of the mA and/or kV according to patient size, and/or use of iterative reconstruction technique. FINDINGS: VERTEBRAE: Nvxj-tl-cnyqrjik multilevel spondylosis appreciated diffusely predominantly at the anterolateral right side of the thoracic spine. No fracture. Normal alignment. 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 DISCS/SPINAL CANAL/NEURAL FORAMINA: Within the limits of the CT technique, no gross disc herniation seen. MRI is more sensitive in evaluation of intervertebral discs. No bony central canal or neural foraminal stenosis.. PARASPINAL SOFT TISSUES: Unremarkable. OTHER FINDINGS: Calcific atherosclerotic changes are seen related to the thoracic aorta. IMPRESSION: No acute fracture or spondylolisthesis identified. Wshn-qd-rbwdkzcb degenerative disease which is predominantly antro lateral to the right and does not affect the central canal. No gross disc herniation. No bony central canal or neural foraminal stenosis identified. 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
[2018-10-16 14:44] VITALS: BP 135/85; PULSE 67; RESP 18; TEMP 98.2
[2018-10-16 19:03] VITALS: O2SAT 97
== END 2018-10-16 14:30 | disposition home or self-care (01) ==
LOC: H.ER 10:14
DX: M54.9 Dorsalgia, unspecified (principal); W19.XXXA Unspecified fall, initial encounter; Y99.0 Civilian activity done for income or pay

== ENCOUNTER 2018-11-14 13:20 | Emergency (ER) | payer SELFPAY ==
[2018-11-14 13:28] VITALS: BMI 25.8
[2018-11-14 13:29] VITALS: RESP 17; TEMP 97.5; O2SAT 97
--- NOTE | 2018-11-14 14:11 | ED PDOC ---
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 Patient reports that in Oct 2018 he fell at work and was subsequently seen in this ED following the fall. Patient had CTs of both the cervical and lumbar spine which demonstrated no acute findings. Patient reports that his pain has been persistent since the fall and that he has been taking muscle relaxers without relief, last dose this morning. Patient reports he has an ortho appt scheduled for 02/05/19 but notes that he is supposed to return to work tomorrow and feels he is in too much pain to do so. Patient states pain is unchanged since it started and is diffuse to the entire back and radiates to the neck. Denies new falls/trauma. Denies fever, saddle anesthesia, numbness/weakness, incontinence, paresthesias, abdominal pain, N/V/D, urinary symptoms, chest pain, SOB. PMD: none Past Medical History Reviewed: Historical Data, Nursing Documentation, Vital Signs Vital Signs: Last Vital Signs Temp 97.5 F L 11/14/18 13:28 Pulse 75 11/14/18 13:28 Resp 17 11/14/18 13:28 BP 153/74 H 11/14/18 13:28 Pulse Ox 97 11/14/18 13:28 - Medical History PMH: Deep Vein Thrombosis (2006 - patient on Warfarin), Malignancy (prostate CA), Pulmonary Embolism - Surgical History Surgical History: Appendectomy (1998) - Family History Family History: States: Unknown Family Hx - Social History Current smoker - smoking cessation education provided: No Drugs: Denies - Home Medications Home Medications: Ambulatory Orders Medication Instructions Recorded Lisinopril [Zestril] 2.5 mg PO DAILY 10/27/15 Pravastatin Sodium [Pravachol] 40 mg PO DAILY 10/27/15 Sildenafil [Revatio] 20 mg PO PRN PRN 10/27/15 Tamsulosin [Flomax] 0.4 mg PO DAILY 10/27/15 Warfarin [Coumadin] 7 mg PO HS 10/27/15 Azithromycin [Z-Stas] 250 mg PO DAILY #6 tab 10/05/16 Promethazine DM [Phenergan DM 10 ml PO Q8H PRN #120 ml 10/05/16 Syrup] Meclizine [Meclizine*] 25 mg PO Q6 PRN #30 tab 12/01/16 Cyclobenzaprine [Cyclobenzaprine 10 mg PO TID #20 tab 01/09/17 HCl] Ibuprofen [Motrin] 600 mg PO Q6 #20 tab 01/09/17 Acetaminophen [Acetaminophen 8 650 mg PO Q8 PRN #21 tablet.er 07/03/18 Hour] Methocarbamol [Robaxin-750] 750 mg PO TID PRN #12 tab 07/03/18 traMADol [Ultram] 50 mg PO Q6 PRN #12 tab 07/03/18 Cyclobenzaprine [Flexeril] 10 mg PO TID #27 tab 10/16/18 Acetaminophen [Acetaminophen 8 650 mg PO Q8 PRN #21 tablet.er 11/14/18 Hour] Meloxicam [Mobic] 15 mg PO DAILY PRN #10 tab 11/14/18 Methocarbamol [Robaxin-750] 750 mg PO Q6 PRN #12 tab 11/14/18 - Allergies Allergies/Adverse Reactions: Allergies Allergy/AdvReac Type Severity Reaction Status Date / Time No Known Allergies Allergy Verified 07/03/18 13:50 Review of Systems ROS Statement: Except As Marked, All Systems Reviewed And Found Negative Musculoskeletal: Positive for: Back Pain Physical Exam - Reviewed Nursing Documentation Reviewed: Yes Vital Signs Reviewed: Yes - Physical Exam Comments: GENERALIZED APPEARANCE: Patient is awake, alert, oriented x3 in no acute distress. Arrived to the ED ambulatory. SKIN: Warm, dry; (-) cyanosis. EYES: (-) conjunctival injection ENMT: Mucous membranes moist. Airway patent, (-) stridor. NECK:Supple, FROM (+) left paracervical tenderness, (-) stiffness, (-) lymphadenopathy. CHEST AND RESPIRATORY: (-) rales, (-) rhonchi, (-) wheezes; breath sounds equal bilaterally. Respirations even and nonlabored. HEART AND CARDIOVASCULAR: (-) irregularity ABDOMEN AND GI: Soft; (-) tenderness; (-) palpable mass (-) CVA tenderness. BACK: Diffusely tender paralumbar and parathoracic area (-) direct bony tendern ess, (-) deformity. EXTREMITIES: (-) deformity. Distal pulses good bilaterally. NEURO AND PSYCH: Mental status as above. Intact sensation bilaterally; normal strength in extension of the knees, plantar and dorsiflexion of the toes. Gait: steady. Speech: clear. (-) facial asymmetry (-) aphasia - ECG O2 Sat by Pulse Oximetry: 97 (RA) Pulse Ox Interpretation: Normal Medical Decision Making Medical Decision Makin Initial Impression: Back Pain S/P fall Plan: Toradol 30mg IM Re-evaluation CTs reviewed from visit on 10/16/18 CT Lumbar Spine FINDINGS: VERTEBRAE: Limited multilevel spondylosis diffusely evident sparing only L1-2 disc interspace level. No fracture. Normal alignment. DISCS/SPINAL CANAL/NEURAL FORAMINA: No bony central canal or neural foraminal stenosis identified at L T12-L1 or L1- 2. At L2-3, a circumferential disc bulge is appreciated combined with facet joint degenerative arthropathy resulting in mild central canal stenosis concentrated at the lateral recesses symmetrically. Mild degenerative bilateral neural foraminal stenoses identified symmetrically. At L3-4, mild to moderate central stenosis results from circumferential disc bulging combining with facet joint degenerative arthropathy with [id number] degenerative bilateral neural foraminal stenoses identified on a degenerative basis. At L4-5, a circumferential disc bulge is appreciated causing mild central stenosis a mild degenerative bilateral neural foraminal stenosis. At L5-S1, a circumferential disc bulge inverting the ventral thecal sac and encroaches the bilateral lateral recesses with facet joint degenerative change. Borderline degenerative neural foraminal stenoses are identified bilaterally. No gross disc herniation appreciated throughout the lumbar spine. MRI is more sensitive in evaluation of intervertebral discs. PARASPINAL SOFT TISSUES: Unremarkable. OTHER FINDINGS: Unremarkable. IMPRESSION: 1. Multilevel degenerative disc disease and facet joint arthropathy resulting in multilevel degenerative spinal stenosis and neural foraminal stenoses seen worst at L3-4 where a aubo-[id number] central canal stenosis occurs with degenerative neural foraminal stenoses. 2. No severe stenosis throughout the lumbar spine. No gross disc herniation however MRI is more sensitive in evaluation of intervertebral discs. 3. No fracture or spondylolisthesis identified. CT Thoracic Spine FINDINGS: VERTEBRAE: Ukij-ke-kxktixzw multilevel spondylosis appreciated diffusely predominantly at the anterolateral right side of the thoracic spine. No fracture. Normal alignment. 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 DISCS/SPINAL CANAL/NEURAL FORAMINA: Within the limits of the CT technique, no gross disc herniation seen. MRI is more sensitive in evaluation of intervertebral discs. No bony central canal or neural foraminal stenosis.. PARASPINAL SOFT TISSUES: Unremarkable. OTHER FINDINGS: Calcific atherosclerotic changes are seen related to the thoracic aorta. IMPRESSION: No acute fracture or spondylolisthesis identified. Bldq-xk-abbhouko degenerative disease which is predominantly antro lateral to the right and does not affect the central canal. No gross disc herniation. No bony central canal or neural foraminal stenosis identified. 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 CT Head FINDINGS: HEMORRHAGE: No intracranial hemorrhage. BRAIN: No mass effect or edema. No atrophy or chronic microvascular ischemic changes. VENTRICLES: Unremarkable. No hydrocephalus. CALVARIUM: Unremarkable. PARANASAL SINUSES: Unremarkable as visualized. No significant inflammatory changes. MASTOID AIR CELLS: Unremarkable as visualized. No inflammatory changes. OTHER FINDINGS: None. IMPRESSION: No acute intracranial abnormalities. No significant findings to account for the clinical presentation. No significant interval change compared to the prior examination(s). CT C-Spine FINDINGS: VERTEBRAE: No fracture. Normal alignment. No destructive bony lesion DISCS/SPINAL CANAL/NEURAL FORAMINA: Multilevel cervical spondylosis. Findings extend from C3-4 to C7-T1. Discs heights are narrowed at these levels. Small non marginal osteophytes identified.. PARASPINAL SOFT TISSUES: Unremarkable. OTHER FINDINGS: None. IMPRESSION: Multilevel degenerative change. No acute findings. 1445 Repeat BP: 142/76 On re-evaluation, patient reports improvement of symptoms. On exam, patient remains AAOx3, in no acute distress. Gait steady in ED. Vitals stable. Lab/Diagnostic results d/w the patient in great detail. Diagnosis of acute back pain s/p fall d/w the patient. Based on history, exam and diagnostic results, plan will be for outpatient follow up with clinic/ortho. Patient instructed to follow-up with pmd / referral provided / the clinic in 1- 2 days without fail. Advised to take medication as prescribed. Return to the emergency room at any time for any new or worsening symptoms. Patient states he fully agrees with and understands discharge instructions. States that he agrees with the plan and disposition. Verbalized and repeated discharge instructions and plan. I have given the patient opportunity to ask any additional questions. Disposition - Clinical Impression Clinical Impression: Low back pain, Upper back pain, Musculoskeletal back pain - Patient ED Disposition Is Patient to be Admitted: No Counseled Patient/Family Regarding: Studies Performed, Diagnosis, Need For Followup, Rx Given - Disposition Referrals: Robert Lechuga MD [Staff Provider] - [facility] [Outside] [facility] [Outside] Disposition: Routine/Home Disposition Time: 14:45 Condition: STABLE Additional Instructions: La atencin mdica de emergencia que recibi hoy se dirigi a abilio sntomas agudos. Si le recetaron algn medicamento, llnelo y tmelo segn las indicaciones. Los sntomas pueden tardar varios haq en resolverse. Regrese al Departamento de Emergencias si abilio sntomas empeoran, no mejoran o si tiene otros problemas. Comunquese con blackburn mdico dentro de 2 haq para bre nueva evaluacin y mansi un seguimiento o llame a brittanie de los mdicos / clnicas a los que javier sido referido y que figuran en el formulario de Informacin de visita al paciente que se incluye en blackburn paquete de neel. Lleve todos los documentos que le entregaron al momento del neel junto con todos los medicamentos que est tomando para blackburn visita de seguimiento. Nuestro tratamiento no puede reemplazar la atencin mdica continua por parte de un proveedor de atencin primaria (PCP) fuera del departamento de emergencias. Prescriptions: Acetaminophen [Acetaminophen 8 Hour] 650 mg PO Q8 PRN #21 tablet.er PRN Reason: Pain, Moderate (4-7) Meloxicam [Mobic] 15 mg PO DAILY PRN #10 tab PRN Reason: Pain, Moderate (4-7) Methocarbamol [Robaxin-750] 750 mg PO Q6 PRN #12 tab PRN Reason: Muscle Spasm Instructions: Low Back Pain in Adults, Upper Back Pain (DC), Muscle Spasms (DC), Muscle and Bone Pain (DC) Forms: [employer] (Arabic) Print Language: MOZAMBICAN - POA Present On Arrival: None
[2018-11-14 14:46] VITALS: BP 142/76; PULSE 72
== END 2018-11-14 14:53 | disposition home or self-care (01) ==
LOC: H.ER 13:20
DX: M54.5 Low back pain (principal); M48.061 Spinal stenosis, lumbar region without neurogenic claudication; Z79.01 Long term (current) use of anticoagulants; Z85.46 Personal history of malignant neoplasm of prostate; Z86.711 Personal history of pulmonary embolism; Z86.718 Personal history of other venous thrombosis and embolism
CPT/HCPCS: 96372; 99282; J1885